=== PATIENT | female | born 1970 | race African-American/Black ===

== ENCOUNTER 2018-01-18 21:32 | Emergency (ER) | payer OTHER ==
[~2018-01-18] VITALS: Ht 182.9 cm; Wt 95.0 kg
[~2018-01-18 21:32] MED LIST: HYDR25TA PO; IBUP-1636 PO
[2018-01-19] MEDS ORDERED: IBUPROFEN 800MG TABLET PO ONE (03:00)
[2018-01-19] MEDS ORDERED: KETOROLAC 30MG/ML VIAL IV ONE (03:30)
[2018-01-19] MEDS ORDERED: KETOROLAC 60MG/2ML VIAL IM ONE (03:30)
[2018-01-19] MEDS ORDERED: LIDOCAINE HCL 1% 20ML VIAL (Pyxis) INJ INFIL ONE (04:45)
[2018-01-19] MEDS ORDERED: LIDOCAINE HCL/PF 1% 10 MG/ML 5ML VIAL IJ SCH (04:50)
[2018-01-19] MEDS ORDERED: HYDROCODONE/ACETAMINOPHEN 5/325MG TABLET PO ONE (05:15)
[2018-01-19 07:03] VITALS: BP 109/69
== END 2018-01-19 07:06 | disposition home or self-care (01) ==
LOC: ER 21:32
DX: S63.295A Dislocation of distal interphalangeal joint of left ring finger, initial encounter (principal); I10 Essential (primary) hypertension; W19.XXXA Unspecified fall, initial encounter; Y93.89 Activity, other specified; Y92.89 Other specified places as the place of occurrence of the external cause; Y99.8 Other external cause status
CPT/HCPCS: 26770; 73140; 96372; 99284; J1885; J3490; Z7610; 26700

== ENCOUNTER 2018-10-04 07:23 | Emergency (ER) | payer MEDICAID, OTHER ==
[~2018-10-04] VITALS: Ht 182.9 cm; Wt 95.0 kg
[2018-10-04] MEDS ORDERED: ALBUTEROL (0.083%) 2.5MG/3ML NEB HHN STA (10:11)
[2018-10-04] MEDS ORDERED: PREDNISONE 20MG TABLET PO STA (10:11)
[2018-10-04] MEDS ORDERED: IPRATROPIUM BROMIDE (0.02%) 0.5MG/2.5ML NEB HHN STA (10:11)
[2018-10-04 11:28] VITALS: BP 116/60
== END 2018-10-04 11:40 | disposition home or self-care (01) ==
LOC: ER 07:23
DX: J20.9 Acute bronchitis, unspecified (principal)
CPT/HCPCS: 71045; 81025; 87804; 93005; 94640; 99284; J7512; J7611; Z7610